=== PATIENT | male | born 1975 | race Caucasian/White ===

== ENCOUNTER 2023-12-07 17:54 | Emergency (ER) | payer MEDICAID, SELFPAY ==
--- NOTE | ~2023-12-07 | XR_ITS ---
EXAMINATION: XR ABDOMEN KUB CLINICAL INDICATION: Constipation COMPARISON: None available. TECHNIQUE: AP view of the abdomen. FINDINGS: Moderate stool burden suggestive of constipation. No dilated loops of bowel to suggest obstruction. No free air. Right pelvic calcification probably representing a calcified phlebolith. Mild degenerative changes of the lower lumbar spine and hips. XR/XR KUB IMPRESSION: Constipation. No evidence of obstruction.
--- NOTE | ~2023-12-07 | CT_ITS ---
EXAMINATION: CT ABDOMEN AND PELVIS WITH CONTRAST CLINICAL INFORMATION: Bilateral lower quadrant pain. Rule out diverticulitis. COMPARISON: None available. TECHNIQUE: Multidetector volumetric images were obtained from the superior aspect of the liver through the pubic symphysis following administration 85 mL of Omnipaque 350 intravenous contrast. Sagittal and coronal reformatted images were obtained on the technologist's workstation. Oral contrast: Yes This CT examination was performed using dose optimization techniques as appropriate, variously including the following: *Automated exposure control *Adjustment of mA and/or kV according to patient size (this includes techniques or standardized protocols for targeted exams where dose is matched to indication/reason for exam; i.e. extremities or head) *Use of iterative reconstruction technique DLP: 914 mGy-cm FINDINGS: LUNG BASES: The visualized lung bases are unremarkable. LIVER, GALLBLADDER, AND BILIARY TREE: The liver is normal in size, shape, and attenuation. No focal hepatic lesion or biliary ductal dilatation is present. The gallbladder is unremarkable with no evidence of radiopaque gallstones, gallbladder wall thickening, or obvious pericholecystic inflammatory changes. PANCREAS: Unremarkable. SPLEEN: Unremarkable. ADRENAL GLANDS: Unremarkable. KIDNEYS AND URETERS: The kidneys are normal in size, shape, and attenuation. No hydronephrosis, hydroureter, or calculi seen. No perinephric stranding. BLADDER: Unremarkable. GASTROINTESTINAL TRACT: Very mild diverticulosis of the colon. No evidence of diverticulitis. The small and large bowel are otherwise unremarkable. The appendix is not seen and by history has been removed. ABDOMINAL WALL: Small umbilical hernia containing fat. LYMPH NODES: Normal. VASCULAR: Unremarkable. PELVIC VISCERA: Unremarkable. OSSEOUS STRUCTURES: Unremarkable. CT/CT abdomen pelvis w IV con IMPRESSION: Very mild diverticulosis. No evidence of diverticulitis. Fleischner guidelines were followed.
[2023-12-07 18:13] VITALS: BP 100/63; PULSE 86; RESP 18; TEMP 37.2; O2SAT 93; BMI 33.0
[2023-12-07 18:32] VITALS: BP 154/84; PULSE 97; O2SAT 99
[2023-12-07 18:34] VITALS: BMI 33.1
[2023-12-07 19:33] VITALS: BP 129/78; PULSE 77; RESP 18; O2SAT 95
--- NOTE | 2023-12-07 19:44 | PC.NURSE ---
Assumed care of pt. Pt pino solo stretcher, legs crossed, appears in no distress. Pt endorsing 10/10 abdominal/rectal pain, with concern for constipation. VSS.
--- NOTE | 2023-12-07 21:31 | ED.GENADULT ---
HPI - General Adult General Chief complaint: General Medical Stated complaint: unable to void, no BM x 2 days Time Seen by Provider: 12/07/23 21:31 Source: patient Mode of arrival: ambulatory Limitations: no limitations History of Present Illness HPI narrative: 48-year-old male with a history of depression, anxiety, bipolar disorder who presents emergency department for evaluation of abdominal pain, constipation and unable to urinate x2 days. Patient is currently at [facility] for suicidal ideation, he states he has been there for 5 days and is going to be discharged in 2 days. He states that they did increase his perphenazine from 2 mg to 4 mg otherwise he has had no other change in his medications. Patient states that is unusual for him to be constipated. He states that is also unusual for him not to urinate. He is complaining of diffuse abdominal pain which is worse in his lower abdomen. He denied fever or chills. He denied nausea, vomiting or diarrhea. Patient states he has had an appendectomy in the past. He denies suicidal or homicidal ideation. Related Data Allergies Allergy/AdvReac Type Severity Reaction Status Date / Time azithromycin AdvReac Hives Verified 12/07/23 18:35 Review of Systems Review of Systems: Yes all other systems are reviewed and are negative [facility] Past Medical History [facility] Narrative: Social history: The patient denies tobacco, alcohol and drug use. He is currently at [facility] for psychiatric treatment for homicidal ideation. Social History Social History Smoked in Last 30 Days: No Use of substances other than those prescribed or required for medical reasons: No Advance Directives: No Advance Directives Information Provided: No Do you have a plan to hurt others: No Plan Physical Exam ED Vital Signs: Vital Signs - 24 hr 12/07/23 18:13 12/07/23 19:33 12/07/23 22:43 Temperature 98.9 F 98.0 F Pulse Rate 86 77 73 Respiratory Rate 18 18 16 Blood Pressure 100/63 129/78 110/77 Pulse Oximetry 93 95 95 Oxygen Delivery Method Room Air Room Air Room Air BMI result Body Mass Index 33.1 Vital signs were normal Exam: General: Awake, alert in no distress, elevated BMI 33.1 kg per m2 Head: Normocephalic, atraumatic EENT: PERRL, Lids normal, sclera normal, conjunctiva normal, nose normal , ears normal, throat without erythema or exudates Neck: Supple, no adenopathy Lung: breath sounds symmetric, no wheezing, rales or rhonchi Chest: symmetric movement, nontender Heart: regular rate and rhythm, normal S1, S2 no murmurs or rubs Abdomen: Soft, mild diffuse tenderness, moderate left lower quadrant and moderate to severe right lower quadrant tenderness, no rebound, no voluntary or involuntary guarding Back: no vertebral tenderness, no CVAT Extremities: no deformities, moves all extremities symmetrically Neuro: Awake, alert, oriented, normal speech, cranial nerves intact, moves all extremities symmetrically Psych: Pleasant, cooperative Medications Administered Discontinued Medications Generic Name Dose Route Start Last Admin Trade Name Freq PRN Reason Stop Dose Admin Sodium Chloride 1,000 mls @ 999 mls/hr 12/07/23 21:48 12/07/23 23:08 Ns IV 12/07/23 22:48 Infused .Q1H1M STA Infusion Iohexol 85 ml 12/07/23 23:13 12/07/23 23:14 Iohexol 350 Mg/Ml 100 Ml Infus..Btl IV 12/07/23 23:14 85 ml ONCE ONE Administration Ketorolac Tromethamine 15 mg 12/07/23 21:48 12/07/23 22:05 Ketorolac Tromethamine 15 Mg/Ml Vial IVPUSH 12/07/23 21:49 15 mg ONCE STA Administration Medical Decision Making Medical Decision Making MDM Narrative: 48-year-old male with a history of depression, anxiety, bipolar disorder who presents emergency department for evaluation of abdominal pain, constipation and unable to urinate x2 days. Patient is currently being treated at [facility] for suicidal ideation, he states he has no longer suicidal and is going to be discharged in 2 days. He did have an increase in his perphenazine from 2 mg to 4 mg. Vital signs were normal. Patient's abdominal exam did reveal diffuse mild tenderness with increased tenderness in the left lower and right lower quadrants. He reports he has had an appendectomy in the past. He had a small bowel movement here in the emergency department and was able to urinate but this did not improve his symptoms worse tenderness. Differential diagnosis: ?Includes but is not limited to appendicitis of appendicitis remnant, diverticulitis, pancreatitis, constipation, urinary retention, adverse reaction to medication increased Following evaluation was ordered: CBC, CMP, lipase, urinalysis, KUB, CT scan of the abdomen pelvis with IV contrast, bladder scan Patient was initially treated with the following: Toradol 15 mg IV and normal saline x1 L Course: 00:15 My interpretation patient's laboratory evaluation as follows: CBC was normal. CMP did reveal slight elevation in his AST, ALT and alk-phos of 66, 103 and 131. Lipase was normal. CT scan of the abdomen pelvis with IV contrast did not reveal a clear cause for the patient's pain, he did have diverticulosis with no evidence of diverticulitis The patient's initial bladder scan was 410 mL of urine, the patient was unable to void and repeat bladder scan was 628 mL of urine. We were going to straight cath the patient but he was then able to fully empty his bladder. At this time I suspect the patient's pain is secondary to urinary retention most likely caused by his increased of perphenazine from 2 mg to 4 mg. Patient will be discharged back to [facility] with instructions to stop his perphenazine and if he has not able to void in the next 6-8 hours then you should return to the emergency department for Ferro catheter. Admission/Observation Consideration of admission/observation: Escalation of care including admission/observation considered Lab Data MDM Lab Attestation statement: I reviewed the patient's lab results. 12/07/23 21:57 12/07/23 21:57 Labs: Lab Results 12/07/23 Range/Units 21:57 WBC 8.6 (4.8-10.8) X10*3/uL RBC 5.76 (4.60-5.80) X10*6/uL Hgb 17.7 (14.0-18.0) g/dl Hct 52.1 H (42.0-52.0) % MCV 90.5 (80.0-98.0) fL MCH 30.7 (27.0-33.0) pg MCHC 34.0 (31.0-36.0) g/dl RDW 13.2 (11.0-16.0) % Plt Count 213 (160-400) X10*3/uL MPV 9.0 L (9.4-12.4) fL Immature Gran % (Auto) 0.4 (0.0-0.4) % Neut % (Auto) 71.3 (45-73) % Lymph % (Auto) 18.1 L (20-40) % Vermilion % (Auto) 7.6 (2-11) % Eos % (Auto) 2.1 (0-4) % Baso % (Auto) 0.5 (0-2) % Lymph # (Auto) 1.6 (1.2-4.9) X10*3/uL [place] # (Auto) 0.7 (0.1-1.2) X10*3/uL Eos # (Auto) 0.2 (0.0-0.4) X10*3/uL Baso # (Auto) 0.0 (0.0-0.2) X10*3/uL Abs Immat Gran (auto) 0.03 (0.00-0.03) X10*3/uL Absolute Neuts (auto) 6.1 (2.0-8.3) x10*3/uL Absolute Nucleated RBC 0.000 (0.0-0.012) X10*3/uL Nucleated RBC % (auto) 0.0 (0.0-0.2) /100WBC Sodium 143 (135-145) mmol/L Potassium 4.1 (3.3-5.1) mmol/L Chloride 103 (96-108) mmol/L Carbon Dioxide 28 (22-29) mmol/L Anion Gap 16 (12-20) BUN 14 (9-16) mg/dL Creatinine 1.10 (0.5-1.4) mg/dL Estim Creat Clear Calc 107.4 Estimated GFR > 60 Random Glucose 93 (60-115) mg/dL Calcium 10.3 H (8.4-10.2) mg/dL Total Bilirubin 0.4 (0.0-1.0) mg/dL AST 66 H (5-37) U/L ALT 103 H (0-40) U/L Alkaline Phosphatase 131 H (39-117) U/L Total Protein 7.5 (6.5-8.0) g/dL Albumin 4.5 (3.5-5.0) g/dL Lipase 14 (8-78) U/L Radiology Impression Discussion of test interpretation with radiology: I have reviewed the radiologist's reading. Radiologist Impression: CT abdomen pelvis w IV con IMPRESSION: Very mild diverticulosis. No evidence of diverticulitis. Fleischner guidelines were followed. Dictated By: Florida Alvarez MD Discharge Plan Discharge Clinical Impression: Acute urinary retention, Elevated liver function tests Abdominal pain Qualifiers: Abdominal location: lower abdomen, unspecified Qualified Code(s): R10.30 - Lower abdominal pain, unspecified Adverse drug reaction Qualifiers: Encounter type: initial encounter Qualified Code(s): T50.905A - Adverse effect of unspecified drugs, medicaments and biological substances, initial encounter Patient Disposition: Home, Self-Care Additional Instructions: Your blood work was normal except for slight elevation in 3 of your liver enzymes Your AST was 66 (normal as 5-37) Your ALT was 103 (normal is 0-40) Your alkaline phosphatase was 131 (normal is 39-117) These are very minor elevations in these enzymes and are not related to your symptoms today. You should have these repeated in 2-4 weeks by your primary care doctor The CT scan of your abdomen pelvis with IV contrast did not reveal a cause of your abdominal pain. Your liver appeared normal on these tests which is also reassuring. Here in the emergency department your bladder scan revealed that your retaining urine. Normally when you have 250 cc of urine in your bladder you should be able to urinate without any difficulty. Your 1st bladder scan was 410 cc, you were unable to urinate and the repeat bladder scan was 628 cc of urine. Your eventually were able to urinate and empty your bladder, but I suspect that this inability urinate was an adverse reaction to your increased of perphenazine. You need to discuss this with your prescribing providers at [facility] but I recommend that you stop this medication since side effect of this medicine is urinary retention. Your providers will need to prescribe another medication for your psychiatric illness. If you are not able to urinate in the next 6 to 10 hours and you feel like your bladder is distended then you should return to the emergency department and we will insert a Ferro catheter. Follow-up with your doctor in 2 days. Please return to the emergency department if your symptoms get worse or if you develop any symptoms that are concerning to you. Print Language: Nigerien
[2023-12-07] MEDS: 0.9 % Sodium Chloride 1,000 ML 999 ML IV (22:05)
[2023-12-07] MEDS: Ketorolac Tromethamine 15 MG/ML VIAL IVPUSH (22:05)
[2023-12-07 22:09] LABS: MANUAL DIFF FLAG NO
[2023-12-07 22:13] LABS: Basophils Percent Auto 0.5 % (0-2); Eosinophils Absolute Auto 0.2 X10*3/uL (0.0-0.4); Eosinophils Percent Auto 2.1 % (0-4); Hematocrit 52.1 % (42.0-52.0); Hemoglobin 17.7 g/dl (14.0-18.0); Imm Gran Abs Auto 0.03 X10*3/uL (0.00-0.03); Imm Gran Pct Auto 0.4 % (0.0-0.4); Lymphocytes Absolute Auto 1.6 X10*3/uL (1.2-4.9); Lymphocytes Percent Auto 18.1 % (20-40); Mean Corpuscular Hemoglobin 30.7 pg (27.0-33.0); Mean Corpuscular Volume 90.5 fL (80.0-98.0); Monocytes Absolute Auto 0.7 X10*3/uL (0.1-1.2); Monocytes Percent Auto 7.6 % (2-11); Neutrophils Absolute Auto 6.1 x10*3/uL (2.0-8.3); Neutrophils Percent Auto 71.3 % (45-73); Platelet Count 213 X10*3/uL (160-400); Red Blood Count 5.76 X10*6/uL (4.60-5.80); Red Cell Distribution Width 13.2 % (11.0-16.0); White Blood Count 8.6 X10*3/uL (4.8-10.8)
[2023-12-07 22:43] VITALS: BP 110/77; PULSE 73; RESP 16; TEMP 36.7; O2SAT 95
[2023-12-07 22:46] LABS: Alanine Aminotransferase 103 U/L (0-40); Albumin Level 4.5 g/dL (3.5-5.0); Alkaline Phosphatase 131 U/L (39-117); Anion Gap 16 (12-20); Aspartate Amino Transferase 66 U/L (5-37); Bilirubin Total 0.4 mg/dL (0.0-1.0); Blood Urea Nitrogen 14 mg/dL (9-16); Calcium 10.3 mg/dL (8.4-10.2); Carbon Dioxide 28 mmol/L (22-29); Chloride 103 mmol/L (96-108); Creatinine Clr Calc Pharmacy 107.4; Estimated Glomerular Filt Rate > 60; Glucose Random 93 mg/dL (60-115); Lipase 14 U/L (8-78); Potassium 4.1 mmol/L (3.3-5.1); Sodium 143 mmol/L (135-145); Total Protein 7.5 g/dL (6.5-8.0)
[2023-12-07] MEDS: iohexoL 350 MG/ML 100 ML INFUS..BTL 85 ML IV (23:14)
[2023-12-08 00:37] VITALS: BP 110/77; PULSE 73; RESP 16; TEMP 36.7; O2SAT 95
== END 2023-12-08 02:28 | disposition home or self-care (01) ==
PROVIDERS: Emergency Provider Emergency Medicine Emergency Medical Services; PCP Nurse Practitioner Family
DX: R33.8 Other retention of urine (principal); T43.3X5A Adverse effect of phenothiazine antipsychotics and neuroleptics, initial encounter; Y92.9 Unspecified place or not applicable; R79.89 Other specified abnormal findings of blood chemistry; R10.30 Lower abdominal pain, unspecified; F31.9 Bipolar disorder, unspecified; R45.851 Suicidal ideations; F41.9 Anxiety disorder, unspecified; Z79.899 Other long term (current) drug therapy
CPT/HCPCS: 36415; 74018; 74177; 80053; 83690; 85025; 96361; 96374; 99284; 99285; J1885; Q9967